=== PATIENT | female | born 2005 | race Two or more races ===

== ENCOUNTER 2025-02-17 08:38 | Emergency (ER) | payer OTHER ==
[~2025-02-17] VITALS: Ht 165.1 cm; Wt 102.5 kg
[2025-02-17 11:37] LABS: URINE APPEARANCE Turbid; URINE BILIRRUBIN Negative (NEGATIVE); URINE BLOOD Large; URINE COLOR Yellow; URINE GLUCOSE Negative (NEGATIVE); URINE LEUKOCYTE Large; URINE NITRATE Negative; URINE PROTEIN 30 (NEGATIVE); URINE UROBILINOGEN 0.2 E.U./dl
[2025-02-17 11:43] LABS: URINE CAST 3.51 uL (0.0-1.40); URINE EPITHELIAL CELLS 40.1 uL (0.0-38.8); URINE RBC 189.4 uL (0.0-20.8); URINE WBC 2210.5 uL (0.0-23.2)
[2025-02-17 11:46] LABS: BASO % 0.2 % (0.1-1.2); EOS # 0.05 (0.04-0.54); EOS % 0.6 % (0.7-7.0); LYMPH # 2.88 (1.18-3.74); LYMPH % 33.7 % (19.3-53.1); MEAN PLATELET VOLUME 10.50 fl (9.4-12.4); MONO # 0.56 (0.24-0.82); MONO % 6.5 % (4.7-12.5); NEUT # 5.02 (1.56-6.13); NEUT % 58.8 % (34.0-71.1); RED CELL DISTRIBUTION WIDTH 13.0 % (11.6-14.4)
[2025-02-17 12:17] LABS: URINE BACTERIA > 9821.5 uL (0.0-1933); URINE CRYSTALS MANY /HPF; URINE KETONE 40 (NEGATIVE)
[2025-02-17 12:21] LABS: INR 0.96
[2025-02-17 12:40] LABS: ALT/SGPT 29.0 U/L (12-78); AST/SGOT 12.0 U/L (15-37); BILIRUBIN TOTAL 0.25 mg/dL (0.3-1.2); BUN CREA RATIO 13.0 (7.0-25.0); CREATININE SERUM 0.47 mg/dL (0.55-1.02); GFR 165.7; GLOBULINA 4.1 G/DL (2.4-3.5); GLUCOSE FASTING 79.0 mg/dL (65-100); HCG QUANTITATIVE 19503.0 mUI/mL (1-3); OSMOLALITY SERUM 272.0 MOSM/KG (275-295)
[2025-02-17] MEDS ORDERED: CEFTRIAXONE SODIUM 1,000 MG VIAL IV ONE (15:45)
[2025-02-17] MEDS ORDERED: 0.9 % SODIUM CHLORIDE 1,000 ML IV ONE (15:45)
[2025-02-17] MEDS ORDERED: CEFTRIAXONE SODIUM 1,000 MG VIAL ONE (16:05)
== END 2025-02-17 17:07 | disposition home or self-care (01) ==
LOC: ER 08:39
DX: O36.4XX0 Maternal care for intrauterine death, not applicable or unspecified (principal); Z3A.11 11 weeks gestation of pregnancy; N39.0 Urinary tract infection, site not specified

== ENCOUNTER → 2025-02-27 | Day surgery (SDC) | payer OTHER ==
[~2025-02-27] VITALS: Ht 165.1 cm; Wt 102.5 kg
[~2025-02-27] MED LIST: 0.9 % SODIUM CHLORIDE 1,000 ML IV SCH; CEFAZOLIN SODIUM 1,000 MG VIAL ONE; FAMOTIDINE/PF 20 MG/2 ML VIAL ONE; FAMOtidine 10 MG/ML (4ML VIAL) IV ONE; MORPHINE SULFATE 4 MG/ML CARTRIDGE IV SCH; ONDANSETRON HCL 2 MG/ML VIAL IV ONE; ONDANSETRON HCL 2 MG/ML VIAL ONE; POVIDONE-IODINE 118 ML BOTT TOP ONE; RINGERS SOLUTION,LACTATED 1,000 ML IV SCH
--- NOTE | 2025-02-27 06:41 | NUR ---
PTE ALERTA Y ORIENTADA X3 REFIERE DOLOR PELVICO Y SANGRADO PEREZ BRILLANTE Y ABUNDANTE. PTE NOTIFICA EMBARAZO DE 11 SEMANAS, SIN EMBARGO, RUIZ KEYONNA DE SEGUIMIENTO CON GINECOLOGO DR. LESLYE HIGH, FETO NO PRESENTA LATIDOS, DE MODO QUE DR. HIGH RECETA MISOPROSTOL 200MG, LA CUAL PTE COMENZO A LAS 1800 DEL LITA DE AMIRA. SE MIDEN SV Y SE UBICA.
[2025-02-27 08:28] LABS: BASO % 0.1 % (0.1-1.2); EOS # 0.08 (0.04-0.54); EOS % 0.9 % (0.7-7.0); LYMPH # 2.68 (1.18-3.74); LYMPH % 30.1 % (19.3-53.1); MEAN PLATELET VOLUME 10.00 fl (9.4-12.4); MONO # 0.44 (0.24-0.82); MONO % 4.9 % (4.7-12.5); NEUT # 5.67 (1.56-6.13); NEUT % 63.7 % (34.0-71.1); RED CELL DISTRIBUTION WIDTH 12.9 % (11.6-14.4)
--- NOTE | 2025-02-27 08:28 | NUR ---
PACIENTE EN ARUN EN COMPANIA DE FAMILIAR. LA MISMA SE EDUCA SOBRE TRATAMIENTOS A SEGUIR Y ESTA REFIERE ENTENDER. SE LE REALIZA AMY DE MUESTAR Y SE COMIENZA ACCESO VENOSO. CON MEDIDAS ASEPTICAS. SE LE OFRECE MEDICAMENTO PARA EL DOLOR, LA MISMA LO REHUSA. ESTA PERMANECE EN ARUN EN ESPERA PERSONAL DE TRANSPORTE, PARA SONOGRAMA.
[2025-02-27 08:46] LABS: INR 0.95
[2025-02-27 09:38] LABS: ALT/SGPT 29.0 U/L (12-78); AST/SGOT 13.0 U/L (15-37); BILIRUBIN TOTAL 0.28 mg/dL (0.3-1.2); BUN CREA RATIO 14.0 (7.0-25.0); CREATININE SERUM 0.5 mg/dL (0.55-1.02); GFR 154.28; GLOBULINA 3.9 G/DL (2.4-3.5); GLUCOSE FASTING 89.0 mg/dL (65-100); OSMOLALITY SERUM 275.0 MOSM/KG (275-295)
[2025-02-27 21:44] VITALS: BP 127/76; O2SAT 100
== END | disposition home or self-care (01) ==
LOC: ER 06:31 → EDSTATUS 06:31 → ER 06:33 → CIR.AMB 06:33 → ER 14:21 → O/R 14:21
PROVIDERS: General Practice; ATTEND Obstetrics & Gynecology
DX: O02.1 Missed abortion (principal); Z3A.11 11 weeks gestation of pregnancy